=== PATIENT | female | born 1955 | race Caucasian/White ===

== ENCOUNTER 2021-08-08 08:10 | Outpatient (CLI) | payer MEDICARE | END 2021-08-08 08:11 | disposition home or self-care (01) | LOC: CSHMAMMO 08:10 | PROVIDERS: ATTEND Family Medicine | DX: Z12.31 Encounter for screening mammogram for malignant neoplasm of breast (principal); Z98.890 Other specified postprocedural states | CPT/HCPCS: 77063; 77067 ==